=== PATIENT | female | born 1945 | race Caucasian/White ===

== ENCOUNTER 2017-05-11 07:49 | Emergency (ER) | payer MEDICARE, MEDICAID ==
[~2017-05-11] VITALS: Ht 152.4 cm; Wt 88.0 kg
[~2017-05-11 07:49] MED LIST: BACTRIM DS 8001 TA1 PO; BENADRYL 25MG C25 MG PO; BENADRYL ALLERG25 M3 PO; CIPRO 500MG TA500 MG PO; CLINDAMYCIN300 MG PO; DAILY MULTIPLE1 T11 PO; DEPAKOTE 500MG500 MG PO; GABAPENTIN 400400 M1 PO; HYDROXYZINE HCL25 M1 PO; IMODIUM 2MG. CAP2 MG PO; KEFLEX 500MG.500 MG PO; KEFLEX500 M1 PO; LASIX 20MG. TAB20 MG PO; LASIX20 MG PO; LIPITOR10 MG PO; LISINOPRIL 10MG10 MG PO; MAALOX ADVANCE355 ML PO; MAALOX MAXIMUM355 ML PO; MIRALAX17 GM/PACK PO; OMNICEF 300 MG300 MG PO; PEPTO-BISM262 MG/15 PO; PREDNISONE 20MG20 MG PO; TRICOR 145 MG145 MG NG; TYLENOL325 MG PO; VITAMIN D1000 IU PO; ZOFRAN4 MG PO; ZOLOFT 50MG TAB50 MG PO; ZOLOFT25 MG PO; ZYPREXA 5MG TAB5 MG PO
--- NOTE | 2017-05-11 09:08 | Emergency Room Report ---
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 N Clinical Suspician of Infection? N Mental Status: 1 - Regular (Normal Baseline) Sepsis Risk:Low Sepsis Risk Have you (or family members/close friends) recently traveled outside the [place]? N If Yes, where/when: Have you had exposure to infectious disease within the past month? N TB? Other? Specify: Source patient, RN notes reviewed, EMS, snf records, old records Exam Limitations no limitations Comment pt with chronic edema in lower ext and sent for eval Cardiac Chest Pain Chest pain indicative of cardiac No Timing/Duration this evening Severity moderate ALLERGIES Coded Allergies: buspirone (05/17/16) esomeprazole (From NEXIUM) (05/17/16) latex (05/17/16) morphine (05/17/16) pneumococcal vaccine (05/17/16) Home Medications Active Scripts HYDROXYZINE HCL (Hydroxyzine HCl) 25 MG PO TID #60 CAP Prov: 02/15/16 CEPHALEXIN (Keflex 500MG Capsule) 500 MG PO Q8H #30 CAP Prov: 02/08/17 Cephalexin (Keflex 500MG) 500 MG PO QID #40 CAP Prov: 05/05/17 Ciprofloxacin HCl (Cipro 500MG TAB) 500 MG PO BID #20 TAB Prov: 05/05/17 Furosemide (Lasix) 20 MG PO DAILY #5 TAB Prov: 09/30/16 Reported Medications Acetaminophen (Tylenol) 650 MG PO Q6HP PRN PAIN Loperamide Hcl (Loperamide) 2 MG PO TID PRN DIARRHEA Olanzapine (Zyprexa 5MG) 5 MG PO Q6HP PRN AGITATION ONDANSETRON HCL (Zofran 4MG Tab) 4 MG PO DAILYP PRN NAUSEA Atorvastatin Calcium (Lipitor 10MG) 40 MG PO QHS Divalproex Sodium (Depakote) 500 MG PO BID Gabapentin (Gabapentin 400MG Capsule) 400 MG PO QID LISINOPRIL (Lisinopril) 10 MG PO DAILY MULTIVITAMIN (Daily Multiple Vitamin) 1 TAB PO DAILY Olanzapine (Zyprexa 5MG) 10 MG PO QHS CHOLECALCIFEROL (VITAMIN D3) (Vitamin D3) 2,000 IUNITS PO DAILY Bismuth Subsalicylate (Pepto-Bismol) 10 ML PO Q4HP PRN STOMACH Mag Hydrox/Al Hydrox/Simeth (Maalox Maximum Strength Susp) 10 ML PO Q6H DIPHENHYDRAMINE HCL (Benadryl) 25 MG PO Q6HP PRN ITCHING Polyethylene Glycol 3350 (Miralax) 17 GM PO DAILY Fenofibrate 145 MG NG QHS Sertraline Hcl (Zoloft 50MG) 50 MG PO DAILY Furosemide (Lasix 20MG) 20 MG PO DAILY History Medical History General CAD? No Angina: No [place]: Yes Hypertension? No Hyperlipidemia? Yes CHF? Yes DVT? No PE? No COPD? No Asthma? No Anemia? No GERD? Yes Gastric ulcers? No GI Bleed? No Hernia? No Thyroid Problems? No Hypothyroidism? No CVA? No Seizures? No Diabetes? No Renal Insuffiency? Yes End Stage Renal Disease? No UTI? No Stones? No BPH? No GB Disease: Yes Nephritic Syndrome? No Asplenia? No Hepatitis? No Sickle Cell Disease? No Arthritis? No Migraines? No Cataracts? No Glaucoma? No MRSA? No HIV? No TB? No Anxiety? Yes Depression? Yes Cancer? No More? No Immunization Hx DT/Tetanus 1-4 Years Ago Pneumonia Refuses Surgical Hx Previous Surgery?Y KIDNEY SURGERY GALLBLADDER Tubal Ligation LEFT NEPHRECTOMY Family History Family Hx Diabetes No CAD Yes Hypertension Yes Hyperlipidemia Yes Cancer No TB No Social History Smoking Hx Smoker: Never Smoker Tobacco: No Alcohol Alcohol: No Drugs none Review of Systems All Other Systems Reviewed and Negative Constitutional denies fever Eyes denies drainage ENT denies: ear pain, epistaxis, throat pain. Respiratory denies cough, denies shortness of breath Cardiovascular denies chest pain, denies syncope Gastrointestinal denies abdominal pain, denies diarrhea, denies vomiting Genitourinary denies: dysuria, frequency, hesitancy, hematuria. Musculoskeletal denies back pain, denies joint pain, denies neck pain Skin see HPI, denies rash, other Psychiatric/Neurological denies headache, denies seizure Physical Exam Vital Signs Vital Signs Date Time Temp Pulse Resp B/P Pulse O2 O2 Flow FiO2 Ox Delivery Rate 05/11 0842 97.8 70 18 152/90 99 05/11 0753 97.8 70 18 152/90 99 - WBC >12,000 or <4,000 or 10% bands? 2 or more SIRS Criteria Met? B/P:152/90 MAP:110 Creatinine >2.0? UA output<0.5ml/kg/hr for 2 hrs? Platelet count >100,000? Lactate >2.0mmol/1? INR >1.2 or PTT > than 60 sec? Evidence of Organ Dysfunction? Provider documented clinical suspician of infection? N Sepsis Criteria Count: 0 Sepsis Risk: Low Sepsis Risk General Appearance no apparent distress Eye Exam - bilateral eye PERRL, bilateral eye EOMI Ear, Nose, Throat normal ENT inspection Neck supple Respiratory Status No: respiratory distress. Lung Sounds bilateral: lungs clear. 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 No Results/Orders Orders Procedure Date/time Status OP COURTSEY MEAL 05/11 075 Active Departure Departure Time of Disposition 912 Disposition DC Home or Self Care(routine) Clinical Impression Primary Impression: Lymphedema of both lower extremities Condition STABLE Referrals Rory Mcgowan MD (Family) Patient Instructions DI for Peripheral Edema -- Bilateral Additional Instructions will need therapy for wraps Discharge Counseling Counseled pt/family regarding diagnosis, follow up needs ED Critical Care Critical Care No at [id number]
[2017-05-11 09:30] VITALS: BP 127/85
== END 2017-05-11 09:31 | disposition home or self-care (01) ==
LOC: ER 07:49
DX: I89.0 Lymphedema, not elsewhere classified (principal); I50.9 Heart failure, unspecified

== ENCOUNTER 2017-07-02 20:14 | Emergency (ER) | payer MEDICARE, MEDICAID ==
[~2017-07-02] VITALS: Ht 152.4 cm; Wt 86.2 kg
--- NOTE | 2017-07-02 21:14 | Emergency Room Report ---
History of Present Illness Time Seen by [id number] Comment The patient is brought in by ambulance from [facility] for a fall. She says that she is wheelchair-bound. She needs assist in the shower. She says that somebody LEFT talcum powder on the floor of the shower causing her to slip and fall. She says that she hurts in her RIGHT ankle and knee, predominantly the knee. She has chronic knee pain for which she takes gabapentin. She has osteoarthritis of that joint. She also has some soreness in her hips. No injury to head, neck, or back. ALLERGIES Coded Allergies: buspirone (05/17/16) esomeprazole (From NEXIUM) (05/17/16) latex (05/17/16) morphine (05/17/16) pneumococcal vaccine (05/17/16) Home Medications Active Scripts HYDROXYZINE HCL (Hydroxyzine HCl) 25 MG PO TID #60 CAP Prov: 02/15/16 Furosemide (Lasix) 20 MG PO DAILY #5 TAB Prov: 09/30/16 Reported Medications Acetaminophen (Tylenol) 650 MG PO Q6HP PRN PAIN Loperamide Hcl (Loperamide) 2 MG PO TID PRN DIARRHEA Olanzapine (Zyprexa 5MG) 5 MG PO Q6HP PRN AGITATION ONDANSETRON HCL (Zofran 4MG Tab) 4 MG PO DAILYP PRN NAUSEA Atorvastatin Calcium (Lipitor 10MG) 40 MG PO QHS Divalproex Sodium (Depakote) 500 MG PO BID Gabapentin (Gabapentin 400MG Capsule) 400 MG PO QID LISINOPRIL (Lisinopril) 10 MG PO DAILY MULTIVITAMIN (Daily Multiple Vitamin) 1 TAB PO DAILY Olanzapine (Zyprexa 5MG) 10 MG PO QHS CHOLECALCIFEROL (VITAMIN D3) (Vitamin D3) 2,000 IUNITS PO DAILY Bismuth Subsalicylate (Pepto-Bismol) 10 ML PO Q4HP PRN STOMACH Mag Hydrox/Al Hydrox/Simeth (Maalox Maximum Strength Susp) 10 ML PO Q6H DIPHENHYDRAMINE HCL (Benadryl) 25 MG PO Q6HP PRN ITCHING Polyethylene Glycol 3350 (Miralax) 17 GM PO DAILY Fenofibrate 145 MG NG QHS Sertraline Hcl (Zoloft 50MG) 50 MG PO DAILY Furosemide (Lasix 20MG) 20 MG PO DAILY History Medical History General CAD? No Angina: No [place]: Yes Hypertension? No Hyperlipidemia? Yes CHF? Yes DVT? No PE? No COPD? No Asthma? No Anemia? No GERD? Yes Gastric ulcers? No GI Bleed? No Hernia? No Thyroid Problems? No Hypothyroidism? No CVA? No Seizures? No Diabetes? No Renal Insuffiency? Yes End Stage Renal Disease? No UTI? No Stones? No BPH? No GB Disease: Yes Nephritic Syndrome? No Asplenia? No Hepatitis? No Sickle Cell Disease? No Arthritis? No Migraines? No Cataracts? No Glaucoma? No MRSA? No HIV? No TB? No Anxiety? Yes Depression? Yes Cancer? No More? No Immunization Hx DT/Tetanus 1-4 Years Ago Pneumonia Refuses Surgical Hx Previous Surgery?Y KIDNEY SURGERY GALLBLADDER Tubal Ligation LEFT NEPHRECTOMY Family History Family Hx Diabetes No CAD Yes Hypertension Yes Hyperlipidemia Yes Cancer No TB No Social History Smoking Hx Smoker: Never Smoker Tobacco: No Alcohol Alcohol: No Review of Systems All Other Systems Reviewed and Negative Gastrointestinal denies vomiting Musculoskeletal denies back pain, joint pain, denies neck pain Psychiatric/Neurological denies headache Physical Exam Vital Signs Vital Signs Date Time Temp Pulse Resp B/P Pulse O2 O2 Flow FiO2 Ox Delivery Rate 07/02 2015 98.5 79 18 135/70 99 General Appearance normal appearance, WD/WN, no apparent distress Eye Exam - bilateral eye normal exam, bilateral eye PERRL, bilateral eye EOMI Ear, Nose, Throat hearing grossly normal, normal ENT inspection Neck normal inspection, non-tender, supple, full range of motion Respiratory Status Yes: trachea midline, chest symmetrical, non tender chest. No: respiratory distress. Lung Sounds bilateral: normal breath sounds, lungs clear. Cardiovascular normal exam, regular rate/rhythm, no peripheral edema, no gallop, no JVD, no murmur, no rub, normal peripheral pulses Peripheral Pulses Pulses normal Yes Gastrointestinal normal bowel sounds, normal exam, non tender, soft, no organomegaly Extremities apparent mild tenderness of RIGHT ankle and knee without edema, ecchymosis, effusion, or deformity. Good range of motion of all joints. Distal neurovascular status intact., no shortening or malrotation of the lower extremities. Good range of motion of hips. Neurologic alert, no motor/sensory deficits, oriented x 3 Mental status normal mood/affect Skin intact, normal color, warm/dry Medical Decision Making LABS/Meds/Orders Pt receiving controlled substance in ED? No Results/Orders Orders Procedure Date/time Status KNEE-3 VIEWS-RT 07/02 2023 Active HIP BILATERAL 2 VIEW MIN EACH 07/02 2023 Active ANKLE-RT-3 VIEWS 07/02 2023 Active Departure Departure Disposition DC Home or Self Care(routine) Clinical Impression Primary Impression: Right knee sprain Qualifiers: Encounter type: initial encounter Involved ligament of knee: unspecified ligament Qualified Code: S83.91XA - Sprain of unspecified site of right knee, initial encounter Secondary Impressions: Contusion, hip Qualifiers: Encounter type: initial encounter Laterality: right Qualified Code: S70.01XA - Contusion of right hip, initial encounter Right ankle sprain Qualifiers: Encounter type: initial encounter Involved ligament of ankle: unspecified ligament Qualified Code: S93.401A - Sprain of unspecified ligament of right ankle, initial encounter Condition STABLE Referrals Juan M HANNA,Rory Robb (Family) Patient Instructions How to Prevent Falls Additional Instructions Contact primary care provider if severe pain or any other concerns. ED Critical Care Critical Care No
[2017-07-02 21:17] VITALS: BP 135/70
--- NOTE | 2017-07-03 10:46 | RADIOLOGY REPORT PS360 ---
HIP BILATERAL 2 VIEW MIN EACH HISTORY: FALL Bilateral hip pain. Patient Age: 71 years: Female Ordering Physician: Lyle Monae MD TECHNIQUE: AP frog-leg view right and left hip COMPARISON : December 2016 right hip FINDINGS Right hip: appears intact with no fracture evident. The hip joint space appears well maintained and similar to previous study.. Hypertrophic ridging and lipping at the superior right acetabulum evident than left hip Left hip. Femoral head and neck intact . Osseous pelvis intact. No fracture or significant findings. Superior and inferior ramus intact bilateral. Sacrum unremarkable. SI joints unremarkable. Numerous phleboliths at the pelvic basin bilaterally. IMPRESSION: Right and left hip intact with no fracture or acute findings. Osseous pelvis intact. Mild hypertrophic ridging more evident at superior rim of right acetabulum and left may reflect some early degenerative changes here. Stable since prior studies
--- NOTE | 2017-07-03 10:50 | RADIOLOGY REPORT PS360 ---
KNEE-3 VIEWS-RT HISTORY: FALL pain at right knee Patient Age: 71 years: Female Ordering Physician: Lyle Monae MD TECHNIQUE: 3 views right knee nonweightbearing COMPARISON :January 2017 FINDINGS Marked joint space narrowing at lateral compartment with hypertrophic lipping and marginal osteophytes along at lateral margin lateral tibial plateau most evident..-With this note resulting suggestion of mild genu valgum. . The medial compartment appears fairly well-maintained. Bones well mineralized. Mild hypertrophic changes about the margin of patella. Upper normal joint fluid no significant joint effusion. IMPRESSION: No fracture or dislocation. No significant acute findings Degenerative arthritic changes right knee which are most pronounced at the lateral compartment. These appear similar if not slightly progressive since January 2017.
--- NOTE | 2017-07-03 10:52 | RADIOLOGY REPORT PS360 ---
ANKLE-RT-3 VIEWS HISTORY: FALLfall with right ankle pain Patient Age: 71 years: Female Ordering Physician: Lyle Monae MD TECHNIQUE: 3 views right ankle COMPARISON :None available FINDINGS ] Ankle is intact with no fracture nor dislocation. There is generous soft tissue swelling about the ankle both medial and lateral. Ankle mortise appears intact.. Dome of talus appears intact. No osteochondral defects at the fairly well-maintained ankle joint. The medial and lateral malleolus and posterior malleolus intact. Mild diffuse mineralization. Mild hypertrophic changes at insertion of Achilles tendon as well as small plantar calcaneal spur noted. IMPRESSION: No fracture at right ankle. Generous diffuse soft tissue swelling about ankle evident
== END 2017-07-02 22:00 | disposition home or self-care (01) ==
LOC: ER 20:14
DX: S83.91XA Sprain of unspecified site of right knee, initial encounter (principal); S70.01XA Contusion of right hip, initial encounter; S93.401A Sprain of unspecified ligament of right ankle, initial encounter; Z88.6 Allergy status to analgesic agent; Z88.7 Allergy status to serum and vaccine; I10 Essential (primary) hypertension; E78.5 Hyperlipidemia, unspecified; K21.9 Gastro-esophageal reflux disease without esophagitis; F41.8 Other specified anxiety disorders; W01.0XXA Fall on same level from slipping, tripping and stumbling without subsequent striking against object, initial encounter; Y92.009 Unspecified place in unspecified non-institutional (private) residence as the place of occurrence of the external cause

== ENCOUNTER 2017-07-11 15:18 | Emergency (ER) | payer MEDICARE, MEDICAID ==
[~2017-07-11] VITALS: Ht 152.4 cm; Wt 86.2 kg
--- NOTE | 2017-07-11 15:32 | Emergency Room Report ---
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 PT FELL TODAY TRYING TO TRANSFER OUT OF BED. PT USES WHEELCHAIR FOR MOBILITY AT [facility]. PT C/O R HIP AND R SHOULDER PAIN R/T FALL TODAY. 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 N Clinical Suspician of Infection? N Mental Status: 1 - Regular (Normal Baseline) Sepsis Risk:Low Sepsis Risk Have you (or family members/close friends) recently traveled outside the [place]? N If Yes, where/when: Have you had exposure to infectious disease within the past month? N TB? Other? Specify: Patient chronically off balance. Chronically falls, but has fallen multiple times this week. She fell two days ago in the shower and fell today while transferring from bed to wheelchair. She lives in a personal senior care and is asking about possible NH placement. No chest pain. No SOB. No syncope. No palpitations. No new neurological sx. Today has right shoulder pain and right hip pain. EMS states she is no longer able to get out of bed w/o assistance. She has a wheelchair at the personal senior care. ALLERGIES Coded Allergies: buspirone (05/17/16) esomeprazole (From NEXIUM) (05/17/16) latex (05/17/16) morphine (05/17/16) pneumococcal vaccine (05/17/16) Home Medications Active Scripts HYDROXYZINE HCL (Hydroxyzine HCl) 25 MG PO TID #60 CAP Prov: 02/15/16 Furosemide (Lasix) 20 MG PO DAILY #5 TAB Prov: 09/30/16 Reported Medications Acetaminophen (Tylenol) 650 MG PO Q6HP PRN PAIN Loperamide Hcl (Loperamide) 2 MG PO TID PRN DIARRHEA Olanzapine (Zyprexa 5MG) 5 MG PO Q6HP PRN AGITATION ONDANSETRON HCL (Zofran 4MG Tab) 4 MG PO DAILYP PRN NAUSEA Atorvastatin Calcium (Lipitor 10MG) 40 MG PO QHS Divalproex Sodium (Depakote) 500 MG PO BID Gabapentin (Gabapentin 400MG Capsule) 400 MG PO QID LISINOPRIL (Lisinopril) 10 MG PO DAILY MULTIVITAMIN (Daily Multiple Vitamin) 1 TAB PO DAILY Olanzapine (Zyprexa 5MG) 10 MG PO QHS CHOLECALCIFEROL (VITAMIN D3) (Vitamin D3) 2,000 IUNITS PO DAILY Bismuth Subsalicylate (Pepto-Bismol) 10 ML PO Q4HP PRN STOMACH Mag Hydrox/Al Hydrox/Simeth (Maalox Maximum Strength Susp) 10 ML PO Q6H DIPHENHYDRAMINE HCL (Benadryl) 25 MG PO Q6HP PRN ITCHING Polyethylene Glycol 3350 (Miralax) 17 GM PO DAILY Fenofibrate 145 MG NG QHS Sertraline Hcl (Zoloft 50MG) 50 MG PO DAILY Furosemide (Lasix 20MG) 20 MG PO DAILY History Medical History General CAD? No Angina: No CT: Yes Hypertension? No Hyperlipidemia? Yes CHF? Yes DVT? No PE? No COPD? No Asthma? No Anemia? No GERD? Yes Gastric ulcers? No GI Bleed? No Hernia? No Thyroid Problems? No Hypothyroidism? No CVA? No Seizures? No Diabetes? No Renal Insuffiency? Yes End Stage Renal Disease? No UTI? No Stones? No BPH? No GB Disease: Yes Nephritic Syndrome? No Asplenia? No Hepatitis? No Sickle Cell Disease? No Arthritis? No Migraines? No Cataracts? No Glaucoma? No MRSA? No HIV? No TB? No Anxiety? Yes Depression? Yes Cancer? No More? No Immunization Hx DT/Tetanus 1-4 Years Ago Pneumonia Refuses Surgical Hx Previous Surgery?Y KIDNEY SURGERY GALLBLADDER Tubal Ligation LEFT NEPHRECTOMY Family History Family Hx Diabetes No CAD Yes Hypertension Yes Hyperlipidemia Yes Cancer No TB No Social History Smoking Hx Smoker: Never Smoker Tobacco: No Alcohol Alcohol: No Review of Systems All Other Systems Reviewed and Negative Musculoskeletal see HPI Physical Exam Vital Signs Vital Signs Date Time Temp Pulse Resp B/P Pulse O2 O2 Flow FiO2 Ox Delivery Rate 07/11 1519 97.8 77 18 146/94 97 General Appearance normal appearance, WD/WN, no apparent distress Eye Exam - bilateral eye normal exam, bilateral eye PERRL, bilateral eye EOMI Ear, Nose, Throat hearing grossly normal (atraumatic) Neck normal inspection, non-tender, supple, full range of motion Respiratory Status Yes: trachea midline, chest symmetrical, non tender chest. No: respiratory distress, tender on palpation, use of accessory muscles, pain on inspiration, pain on expiration, productive cough, non productive cough. Lung Sounds bilateral: normal breath sounds, lungs clear. Cardiovascular normal exam, regular rate/rhythm, no peripheral edema, no gallop, no JVD, no murmur, no rub, normal peripheral pulses Gastrointestinal normal bowel sounds, normal exam, non tender, soft, no organomegaly, no guarding, no rebound Back normal inspection, no vertebral tenderness, bowel/bladder continent, strt leg raising(L)-NML, strt leg raising(R)-NML Extremities normal range of motion, normal inspection, normal capillary refill, no calf tenderness, no pedal edema, pelvis stable, pain to right shoulder, diffusely, w/o crepitus/deformity/stepoff; pelvis stable but pain to right hip with palpation; no rotation or shortening noted. 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 No Results/Orders Orders Procedure Date/time Status DIET-NOTHING BY MOUTH 07/[address] HEAD REQ 07/[address] SCAN REQ 07/11 1527 Complete [id number] VIEW COMP.-RT 07/11 1527 Active XRAY/CT/US XRAY/CT/US XRAY shoulder XR interpretation by reviewed by me Xray Results no fracture seen (DJD good alignment) CT head, C-spine, pelvis CT interpretation by reviewed by me (reports reviewed x three) Time results known: 1625 CT Results normal/NAD, no fracture seen (neg acute; DJD spondylosis) Consult MD Physician Consult Time Called 1531 Reason Other (care management consulted ?NH) Departure Departure Time of Disposition 162 Disposition DC Home or Self Care(routine) Clinical Impression Primary Impression: Fall Qualifiers: Encounter type: initial encounter Qualified Code: W19.XXXA - Unspecified fall, initial encounter Secondary Impressions: Right hip pain Right shoulder pain Qualifiers: Chronicity: acute Qualified Code: M25.511 - Pain in right shoulder Condition STABLE Referrals Juan M HANNA,Rory Robb (Family) Patient Instructions How to Prevent Falls Additional Instructions Valerie from care management has spoken with Mi to set up home health. Continue all current medications; recommend assistance with transfer from bed to wheelchair and vice versa and assistance with bathing to help prevent falls. Discharge Counseling Counseled pt/family regarding diagnosis, test results, medications/RX, home care, follow up needs ED Critical Care Critical Care No at 1707
--- NOTE | 2017-07-11 15:32 | Emergency Room Report ---
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 PT FELL TODAY TRYING TO TRANSFER OUT OF BED. PT USES WHEELCHAIR FOR MOBILITY AT [facility]. PT C/O R HIP AND R SHOULDER PAIN R/T FALL TODAY. 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 N Clinical Suspician of Infection? N Mental Status: 1 - Regular (Normal Baseline) Sepsis Risk:Low Sepsis Risk Have you (or family members/close friends) recently traveled outside the [place]? N If Yes, where/when: Have you had exposure to infectious disease within the past month? N TB? Other? Specify: Patient chronically off balance. Chronically falls, but has fallen multiple times this week. She fell two days ago in the shower and fell today while transferring from bed to wheelchair. She lives in a personal group home and is asking about possible NH placement. No chest pain. No SOB. No syncope. No palpitations. No new neurological sx. Today has right shoulder pain and right hip pain. EMS states she is no longer able to get out of bed w/o assistance. She has a wheelchair at the personal group home. ALLERGIES Coded Allergies: buspirone (05/17/16) esomeprazole (From NEXIUM) (05/17/16) latex (05/17/16) morphine (05/17/16) pneumococcal vaccine (05/17/16) Home Medications Active Scripts HYDROXYZINE HCL (Hydroxyzine HCl) 25 MG PO TID #60 CAP Prov: 02/15/16 Furosemide (Lasix) 20 MG PO DAILY #5 TAB Prov: 09/30/16 Reported Medications Acetaminophen (Tylenol) 650 MG PO Q6HP PRN PAIN Loperamide Hcl (Loperamide) 2 MG PO TID PRN DIARRHEA Olanzapine (Zyprexa 5MG) 5 MG PO Q6HP PRN AGITATION ONDANSETRON HCL (Zofran 4MG Tab) 4 MG PO DAILYP PRN NAUSEA Atorvastatin Calcium (Lipitor 10MG) 40 MG PO QHS Divalproex Sodium (Depakote) 500 MG PO BID Gabapentin (Gabapentin 400MG Capsule) 400 MG PO QID LISINOPRIL (Lisinopril) 10 MG PO DAILY MULTIVITAMIN (Daily Multiple Vitamin) 1 TAB PO DAILY Olanzapine (Zyprexa 5MG) 10 MG PO QHS CHOLECALCIFEROL (VITAMIN D3) (Vitamin D3) 2,000 IUNITS PO DAILY Bismuth Subsalicylate (Pepto-Bismol) 10 ML PO Q4HP PRN STOMACH Mag Hydrox/Al Hydrox/Simeth (Maalox Maximum Strength Susp) 10 ML PO Q6H DIPHENHYDRAMINE HCL (Benadryl) 25 MG PO Q6HP PRN ITCHING Polyethylene Glycol 3350 (Miralax) 17 GM PO DAILY Fenofibrate 145 MG NG QHS Sertraline Hcl (Zoloft 50MG) 50 MG PO DAILY Furosemide (Lasix 20MG) 20 MG PO DAILY History Medical History General CAD? No Angina: No NM: Yes Hypertension? No Hyperlipidemia? Yes CHF? Yes DVT? No PE? No COPD? No Asthma? No Anemia? No GERD? Yes Gastric ulcers? No GI Bleed? No Hernia? No Thyroid Problems? No Hypothyroidism? No CVA? No Seizures? No Diabetes? No Renal Insuffiency? Yes End Stage Renal Disease? No UTI? No Stones? No BPH? No GB Disease: Yes Nephritic Syndrome? No Asplenia? No Hepatitis? No Sickle Cell Disease? No Arthritis? No Migraines? No Cataracts? No Glaucoma? No MRSA? No HIV? No TB? No Anxiety? Yes Depression? Yes Cancer? No More? No Immunization Hx DT/Tetanus 1-4 Years Ago Pneumonia Refuses Surgical Hx Previous Surgery?Y KIDNEY SURGERY GALLBLADDER Tubal Ligation LEFT NEPHRECTOMY Family History Family Hx Diabetes No CAD Yes Hypertension Yes Hyperlipidemia Yes Cancer No TB No Social History Smoking Hx Smoker: Never Smoker Tobacco: No Alcohol Alcohol: No Review of Systems All Other Systems Reviewed and Negative Musculoskeletal see HPI Physical Exam Vital Signs Vital Signs Date Time Temp Pulse Resp B/P Pulse O2 O2 Flow FiO2 Ox Delivery Rate 07/11 1519 97.8 77 18 146/94 97 General Appearance normal appearance, WD/WN, no apparent distress Eye Exam - bilateral eye normal exam, bilateral eye PERRL, bilateral eye EOMI Ear, Nose, Throat hearing grossly normal (atraumatic) Neck normal inspection, non-tender, supple, full range of motion Respiratory Status Yes: trachea midline, chest symmetrical, non tender chest. No: respiratory distress, tender on palpation, use of accessory muscles, pain on inspiration, pain on expiration, productive cough, non productive cough. Lung Sounds bilateral: normal breath sounds, lungs clear. Cardiovascular normal exam, regular rate/rhythm, no peripheral edema, no gallop, no JVD, no murmur, no rub, normal peripheral pulses Gastrointestinal normal bowel sounds, normal exam, non tender, soft, no organomegaly, no guarding, no rebound Back normal inspection, no vertebral tenderness, bowel/bladder continent, strt leg raising(L)-NML, strt leg raising(R)-NML Extremities normal range of motion, normal inspection, normal capillary refill, no calf tenderness, no pedal edema, pelvis stable, pain to right shoulder, diffusely, w/o crepitus/deformity/stepoff; pelvis stable but pain to right hip with palpation; no rotation or shortening noted. 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 No Results/Orders Orders Procedure Date/time Status DIET-NOTHING BY MOUTH 07/[address] HEAD REQ 07/[address] SCAN REQ 07/11 1527 Complete [id number] VIEW COMP.-RT 07/11 1527 Active XRAY/CT/US XRAY/CT/US XRAY shoulder XR interpretation by reviewed by me Xray Results no fracture seen (DJD good alignment) CT head, C-spine, pelvis CT interpretation by reviewed by me (reports reviewed x three) Time results known: 1625 CT Results normal/NAD, no fracture seen (neg acute; DJD spondylosis) Consult MD Physician Consult Time Called 1531 Reason Other (care management consulted ?NH) Departure Departure Time of Disposition 162 Disposition DC Home or Self Care(routine) Clinical Impression Primary Impression: Fall Qualifiers: Encounter type: initial encounter Qualified Code: W19.XXXA - Unspecified fall, initial encounter Secondary Impressions: Right hip pain Right shoulder pain Qualifiers: Chronicity: acute Qualified Code: M25.511 - Pain in right shoulder Condition STABLE Referrals Juan M HANNA,Rory Robb (Family) Patient Instructions How to Prevent Falls Additional Instructions Valerie from care management has spoken with Mi to set up home health. Continue all current medications; recommend assistance with transfer from bed to wheelchair and vice versa and assistance with bathing to help prevent falls. Discharge Counseling Counseled pt/family regarding diagnosis, test results, medications/RX, home care, follow up needs ED Critical Care Critical Care No at [id number]
--- NOTE | 2017-07-11 16:07 | RADIOLOGY REPORT PS360 ---
CT HEAD W/O CONTRAST HISTORY: Headache/head pain following injury, multiple falls PT FELL FIVE TIMES AT PERSONAL SHELTER THIS WEEK ORDERING PHYSICIAN: Rosa Davis MD PATIENT AGE: 71 years COMPARISON: 12/06/2016 TECHNIQUE: Axial images obtained without contrast. Brain and bone windows reviewed. FINDINGS: No midline shift, mass effect, intracranial hemorrhage, hydrocephalus, or extra-axial fluid collection is evident. There is generalized atrophy The calvarium has an unremarkable appearance. No mastoid effusion. The visualized paranasal sinuses are unremarkable. IMPRESSION: No acute intracranial findings.
--- NOTE | 2017-07-11 16:07 | RADIOLOGY REPORT PS360 ---
CT HEAD W/O CONTRAST HISTORY: Headache/head pain following injury, multiple falls PT FELL FIVE TIMES AT PERSONAL JAIL THIS WEEK ORDERING PHYSICIAN: Rosa Davis MD PATIENT AGE: 71 years COMPARISON: 12/06/2016 TECHNIQUE: Axial images obtained without contrast. Brain and bone windows reviewed. FINDINGS: No midline shift, mass effect, intracranial hemorrhage, hydrocephalus, or extra-axial fluid collection is evident. There is generalized atrophy The calvarium has an unremarkable appearance. No mastoid effusion. The visualized paranasal sinuses are unremarkable. IMPRESSION: No acute intracranial findings.
--- NOTE | 2017-07-11 16:12 | RADIOLOGY REPORT PS360 ---
CT CERVICAL SPINE W/O CONT INDICATION: Neck pain following injury, multiple falls PT FELL FIVE TIMES AT PERSONAL LONG TERM THIS WEEK ORDERING PHYSICIAN: Rosa Davis MD PATIENT AGE: 71 years COMPARISON: 12/06/2016 TECHNIQUE: Axial images are obtained without contrast. Sagittal and coronal reformatted images are reviewed as well. FINDINGS: No acute fracture or dislocation is evident. There is slight reversal of the cervical lordosis with mild anterolisthesis of C4 on C5 of 4 mm not significantly changed. There is multilevel degenerative disc disease and facet arthritic change C2-C7. Small bony spur is present along the anterior arch of C1 on the left projected between the dens and the arch is unchanged. C2-C3: Degenerative disc disease. See 3 C4: Degenerative disc disease with facet and uncovertebral hypertrophy with bilateral foraminal narrowing. C4-C5: Severe degenerative disc disease with severe right-sided foraminal narrowing and moderate to severe left-sided foraminal narrowing. C5-C6: Degenerative disc disease with bilateral foraminal narrowing. There are prominent anterior osteophytes along the lower cervical spine. Lung apices are clear. IMPRESSION: 1. No acute fracture. 2. Moderate to severe cervical spondylosis as detailed above
--- NOTE | 2017-07-11 16:17 | RADIOLOGY REPORT PS360 ---
CT PELVIS W/O CONTRAST INDICATION: Pelvic pain following injury, multiple falls PT FELL FIVE TIMES AT PERSONAL RETIREMENT THIS WEEK ORDERING PHYSICIAN: Rosa Davis MD PATIENT AGE: 71 years COMPARISON: None TECHNIQUE: Axial images are obtained without contrast. Sagittal and coronal reformatted images are reviewed as well. FINDINGS: No acute fracture or dislocation. There is fusion of the right SI joint. Lumbar spondylosis noted. There is a ventral abdominal wall hernia containing a loop of transverse colon. No obvious obstruction. IMPRESSION: 1. No acute fracture. 2. Abdominal wall hernia containing a loop of large bowel
--- NOTE | 2017-07-11 16:17 | RADIOLOGY REPORT PS360 ---
CT PELVIS W/O CONTRAST INDICATION: Pelvic pain following injury, multiple falls PT FELL FIVE TIMES AT PERSONAL ALF THIS WEEK ORDERING PHYSICIAN: Rosa Davis MD PATIENT AGE: 71 years COMPARISON: None TECHNIQUE: Axial images are obtained without contrast. Sagittal and coronal reformatted images are reviewed as well. FINDINGS: No acute fracture or dislocation. There is fusion of the right SI joint. Lumbar spondylosis noted. There is a ventral abdominal wall hernia containing a loop of transverse colon. No obvious obstruction. IMPRESSION: 1. No acute fracture. 2. Abdominal wall hernia containing a loop of large bowel
--- NOTE | 2017-07-11 16:43 | RADIOLOGY REPORT PS360 ---
[id number] VIEW COMP.-RT HISTORY: Pain following injury frequent falls x five this week c/o R shoulder pain ORDERING PHYSICIAN: Rosa Davis MD PATIENT AGE: 71 years COMPARISON: None FINDINGS: No acute fracture or dislocation evident. There are mild osteoarthritic changes of the acromioclavicular joint and glenohumeral joint. Multiple soft tissue calcifications are present along the right deltoid area. IMPRESSION: Osteoarthritis, no acute finding
--- NOTE | 2017-07-11 16:43 | RADIOLOGY REPORT PS360 ---
[id number] VIEW COMP.-RT HISTORY: Pain following injury frequent falls x five this week c/o R shoulder pain ORDERING PHYSICIAN: Rosa aDvis MD PATIENT AGE: 71 years COMPARISON: None FINDINGS: No acute fracture or dislocation evident. There are mild osteoarthritic changes of the acromioclavicular joint and glenohumeral joint. Multiple soft tissue calcifications are present along the right deltoid area. IMPRESSION: Osteoarthritis, no acute finding
[2017-07-11 16:45] VITALS: BP 127/70
--- OUTSIDE RECORDS SUMMARY | 2017-07-16 02:45 | External Medical Summary Rpt | CCD ---
Demographics Preferred Language Kiswahili Marital Status Unknown Yazidi Affiliation Unknown Race Unknown Ethnic Group Unknown Author Author , BASSEM CRAWFORDCY Address Unknown Phone [email or web address] Care Team Providers Care Well Testing Operator Name Role Phone [facility]LY [facility] # Unavailable Unavailable 56, [employer] [facility] # 56 Purpose Continuity of Care Document - 12-25-2009 through 2016 Medications Na ND Rx Da Fi Fi Am Da Di Ph RX Ph St me C No te ll ll ou ys ag ar # ys at rm s nt no ma ic us Or Da si cy ia de te s n re d DO 00 06 12 4 60 30 GE 53 LAKE Ac CU 53 -0 -2 .0 NO 43 YS ti SA 63 9- 2- 00 A 0 LI ve TE 75 20 20 HE P 70 11 11 AL DI SO 1 TH AN DI CA A UM RE C # 25 0 56 MG CA PS UL E DO 00 06 10 4 60 30 GE 53 LAKE Ac CU 53 -0 -1 .0 NO 43 YS ti SA 63 9- 1- 00 A 0 LI ve TE 75 20 20 HE P 70 11 11 AL DI SO 1 TH AN DI CA A UM RE C # 25 0 56 MG CA PS UL E DO 00 06 09 4 60 30 GE 53 LAKE Ac CU 53 -0 -0 .0 NO 43 YS ti SA 63 9- 6- 00 A 0 LI ve TE 75 20 20 HE P 70 11 11 AL DI SO 1 TH AN DI CA A UM RE C # 25 0 56 MG CA PS UL E DO 00 06 07 4 60 30 GE 53 LAKE Ac CU 53 -0 -1 .0 NO 43 YS ti SA 63 9- 9- 00 A 0 LI ve TE 75 20 20 HE P 70 11 11 AL DI SO 1 TH AN DI CA A UM RE C # 25 0 56 MG CA PS UL E DO 00 06 06 4 60 30 GE 53 LAKE Ac CU 53 -0 -2 .0 NO 43 YS ti SA 63 9- 2- 00 A 0 LI ve TE 75 20 20 HE P 70 11 11 AL DI SO 1 TH AN DI CA A UM RE C # 25 0 56 MG CA PS UL E DO 00 03 04 5 60 30 GE 49 LAKE Ac CU 53 -1 -1 .0 NO 76 YS ti SA 63 8- 4- 00 A 7 LI ve TE 75 20 20 HE P 70 11 11 AL DI SO 1 TH AN DI CA A UM RE C # 25 0 56 MG CA PS UL E DO 00 03 03 5 60 30 GE 49 LAKE Ac CU 53 -1 -1 .0 NO 76 YS ti SA 63 8 8- 00 A 7 LI ve TE 75 20 20 HE P 70 11 11 AL DI SO 1 TH AN DI CA A UM RE C # 25 0 56 MG CA PS UL E DO 00 08 02 4 60 30 GE 41 LAKE Ac CU 53 -1 -0 .0 NO 03 YS ti SA 63 00 A 0 LI ve TE 75 20 20 HE P 70 10 11 AL DI SO 1 TH AN DI CA A UM RE C # 25 0 56 MG CA PS UL E DO 00 08 01 4 60 30 GE 41 LAKE Ac CU 53 -1 -1 .0 NO 03 YS ti SA 63 A 0 LI ve TE 75 20 20 HE P 70 10 11 AL DI SO 1 TH AN DI CA A UM RE C # 25 0 56 MG CA PS UL E DO 00 08 11 4 60 30 GE 41 LAKE Ac CU 53 -1 -0 .0 NO 03 YS ti SA 63 A 0 LI ve TE 75 20 20 HE P 70 10 10 AL DI SO 1 TH AN DI CA A UM RE C # 25 0 56 MG CA PS UL E DO 00 08 10 4 60 30 GE 41 LAKE Ac CU 53 -1 -1 .0 NO 03 YS ti SA 63 A 0 LI ve TE 75 20 20 HE P 70 10 10 AL DI SO 1 TH AN DI CA A UM RE C # 25 0 56 MG CA PS UL E DO 00 08 09 4 60 30 GE 41 LAKE Ac CU 53 -1 -0 .0 NO 03 YS ti SA 63 A 0 LI ve TE 75 20 20 HE P 70 10 10 AL DI SO 1 TH AN DI CA A UM RE C # 25 0 56 MG CA PS UL E DO 00 07 08 3 60 30 GE 40 RE Ac CU 53 -1 -1 .0 NO 25 ES ti SA 63 9 2- 00 A 2 OR ve TE 75 20 20 HE 70 10 10 AL RUBÉN SO 1 TH HN DI CA E UM RE # 25 0 56 MG CA PS UL E DO 00 04 07 3 60 30 GE 36 LAKE Ac CU 53 -2 -1 .0 NO 69 YS ti SA 63 1- 9- 00 A 9 LI ve TE 75 20 20 HE P 70 10 10 AL DI SO 1 TH AN DI CA A UM RE C # 25 0 56 MG CA PS UL E DO 00 04 06 3 60 30 GE 36 LAKE Ac CU 53 -2 -1 .0 NO 69 YS ti SA 63 1- 4- 00 A 9 LI ve TE 75 20 20 HE P 70 10 10 AL DI SO 1 TH AN DI CA A UM RE C # 25 0 56 MG CA PS UL E DO 00 04 05 3 60 30 GE 36 LAKE Ac CU 53 -2 -1 .0 NO 69 YS ti SA 63 1 7- 00 A 9 LI ve TE 75 20 20 HE P 70 10 10 AL DI SO 1 TH AN DI CA A UM RE C # 25 0 56 MG CA PS UL E DO 00 04 04 3 60 30 GE 36 LAKE Ac CU 53 -2 -2 .0 NO 69 YS ti SA 63 1- - 00 A 9 LI ve TE 75 20 20 HE P 70 10 10 AL DI SO 1 TH AN DI CA A UM RE C # 25 0 56 MG CA PS UL E DO 00 11 03 3 60 30 GE 30 LAKE Ac CU 53 -1 -2 .0 NO 50 YS ti SA 63 8- 5- 00 A 6 LI ve TE 75 20 20 HE P 70 09 10 AL DI SO 1 TH AN DI CA A UM RE C # 25 0 56 MG CA PS UL E
--- OUTSIDE RECORDS SUMMARY | 2017-07-16 02:45 | External Medical Summary Rpt | CCD ---
Author Author , BASSEM LUEVANO Address Unknown Phone [email or web address] Team Providers Care Professor Of Communication Arts Name Role Phone [facility] # Unavailable Unavailable 56, [facility] Purpose Continuity of Care Document [...] NO 76 YS ti SA 63 8- 8- 00 A 7 LI ve TE 75 20 20 HE P 70 11 11 AL DI SO 1 TH AN DI CA A UM RE C # 25 0 56 MG CA PS UL E DO 00 08 02 4 60 30 GE 41 LAKE Ac CU 53 -1 -0 .0 NO 03 YS ti SA 63 1- 7- 00 A 0 LI ve TE 75 20 20 HE P 70 10 11 AL DI SO 1 TH AN DI CA A UM RE C # 25 0 56 MG CA PS UL E DO 00 08 01 4 60 30 GE 41 LAKE Ac CU 53 -1 -1 .0 NO 03 YS ti SA 63 1- 1- 00 A 0 LI ve TE 75 20 20 HE P 70 10 11 AL DI SO 1 TH AN DI CA A UM RE C # 25 0 56 MG CA PS UL E DO 00 08 11 4 60 30 GE 41 LAKE Ac CU 53 -1 -0 .0 NO 03 YS ti SA 63 1- 9- 00 A 0 LI ve TE 75 20 20 HE P 70 10 10 AL DI SO 1 TH AN DI CA A UM RE C # 25 0 56 MG CA PS UL E DO 00 08 10 4 60 30 GE 41 LAKE Ac CU 53 -1 -1 .0 NO 03 YS ti SA 63 1- 1- 00 A 0 LI ve TE 75 20 20 HE P 70 10 10 AL DI SO 1 TH AN DI CA A UM RE C # 25 0 56 MG CA PS UL E DO 00 08 09 4 60 30 GE 41 LAKE Ac CU 53 -1 -0 .0 NO 03 YS ti SA 63 1- 9- 00 A 0 LI ve TE 75 20 20 HE P 70 10 10 AL DI SO 1 TH AN DI CA A UM RE C # 25 0 56 MG CA PS UL E DO 00 07 08 3 60 30 GE 40 RE Ac CU 53 -1 -1 .0 NO 25 ES ti SA 63 9- 2- 00 A 2 OR ve TE 75 20 20 HE 70 10 10 AL RUBÉN SO 1 HN DI CA E UM RE # [...] NO 69 YS ti SA 63 1- 7- 00 A 9 LI ve TE 75 20 20 HE P 70 10 10 AL DI SO 1 TH AN DI CA A UM RE C # 25 0 56 MG CA PS UL E DO 00 04 04 3 60 30 GE 36 LAKE Ac CU 53 -2 -2 .0 NO 69 YS ti SA 63 1- 1- 00 A 9 LI ve TE 75 [...]
--- OUTSIDE RECORDS SUMMARY | 2017-07-16 02:45 | External Medical Summary Rpt | CCD ---
Demographics Preferred Language Lao Marital Status Unknown Islam Affiliation Unknown Race Unknown Ethnic Group Unknown Author Author , BASSEM CRAWFORDCY Address Unknown Phone [email or web address] Care Team Providers Care Area Field Person Name Role Phone [facility]avonneFORMERLY [facility] # Unavailable Unavailable 56, [employer] [facility] # 56 Purpose Continuity of Care Document [...]
--- OUTSIDE RECORDS SUMMARY | 2017-07-16 02:45 | External Medical Summary Rpt | CCD ---
Author Author , BASSEM LUEVANO Address Unknown Phone [email or web address] Care Team Providers Care Machining And Assembly Supervisor Name Role Phone [facility] # Unavailable Unavailable 56, [employer] MediaFORMERLY [facility] # 56 Purpose Continuity of Care [...]
--- OUTSIDE RECORDS SUMMARY | 2017-07-16 02:46 | External Medical Summary Rpt | CCD ---
Author Author , BASSEM LUEVANO Address Unknown Phone [email or web address] Immunization Name Date Rout CVX Reac Dose Comm Prov Is Faci e tion ent ider Refu lity Give sed n PCV1 06-0 133 999 Hist 1005 No 1005 3 3-20 oric 00 00 16 al Info rmat ion - Sour ce Unsp ecif ied Td 03-0 Intr 9 999 Hist H134 No H134 (shi 1-20 amus oric lt), 04 cula al r Info adso rmat rbed ion - Sour ce Unsp ecif ied
--- OUTSIDE RECORDS SUMMARY | 2017-07-16 02:46 | External Medical Summary Rpt | CCD ---
Author Author , BASSEM LUEVANO Address Unknown Phone [email or web address] Immunization Name Date Rout CVX Reac Dose [...]
--- OUTSIDE RECORDS SUMMARY | 2017-07-16 02:47 | External Medical Summary Rpt ---
Author Author [employer], [employer] Organization [employer] Address Unknown Phone Unavailable Results Comprehensive metabolic 2000 panel in Serum or Plasma Observa Value Referen Units Interpr Notes Date tion ce etation Range Albumin/G 1.1 - 1.8 No Low No May 05 lobulin informati informati 2017 4:15 [Mass on in on in PM ratio] in source source Serum or data data Plasma Albumin 3.4 - 5.0 gm/dL Low No May 05 [Mass/vol informati 2017 4:15 ume] in on in PM Serum or source Plasma data Alkaline 46 - 116 U/L Normal No May 05 phosphata informati 2016 4:15 se on in PM [Enzymati source c data activity/ volume] in Serum or Plasma Bilirubin 0.2 - 1.0 mg/dL Normal No May 05 .total informati 2016 4:15 [Mass/vol on in PM ume] in source Serum or data Plasma Urea 7 - 18 mg/dL High No May 05 nitrogen informati 2017 4:15 [Mass/vol on in PM ume] in source Serum or data Plasma Calcium 8.5 - mg/dL Normal No May 05 [Mass/vol 10.1 informati 2017 4:15 ume] in on in PM Serum or source Plasma data Chloride 98 - 107 mmoL/L Normal No May 05 [Moles/vo informati 2017 4:15 lume] in on in PM Serum or source Plasma data Carbon 21.0 - mmoL/L Normal No May 05 dioxide, 32.0 informati 2017 4:15 total on in PM [Moles/vo source lume] in data Serum or Plasma Creatinin 0.55 - mg/dL High No May 05 e 1.02 informati 2017 4:15 [Mass/vol on in PM ume] in source Serum or data Plasma Creatinin 50 - 200 ML/MIN Normal No May 05 e renal informati 2017 4:15 clearance on in PM source predicted data by Cockcroft -Gault formula Estimated 59- ML/MIN Low REFERENCE Aug 3 RANGE: 2016 4:15 glomerula >60 PM r ML/MIN/1. filtratio 73 SQUARE n rate METERSIf (GF this patient is -A merican, then multiply theresult by 1.210. Globulin 1.3 - 3.2 gm/dL High No May 05 [Mass/vol informati 2016 4:15 ume] in on in PM Serum source data Glucose 74 - 106 mg/dL High No May 05 [Mass/vol informati 2016 4:15 ume] in on in PM Serum or source Plasma data Potassium 3.5 - 5.1 mmoL/L Normal No May 052016 4:15 [Moles/vo on in PM lume] in source Serum or data Plasma Sodium 136 - 145 mmoL/L Normal No May 05 [Moles/vo informati 2016 4:15 lume] in on in PM Serum or source Plasma data Aspartate 15 - 37 U/L Normal No May 052016 4:15 aminotran on in PM sferase source [Enzymati data c activity/ volume] in Serum or Plasma Alanine 12 - 78 U/L Normal May 05 aminotran 2016 4:15 sferase on in PM [Enzymati source c data activity/ volume] in Serum or Plasma Protein 6.4 - 8.2 gm/dL Normal May 05 [Mass/vol informati 2016 4:15 ume] in on in PM Serum or source Plasma data CRP Observa Value Referen Units Interpr Notes Date tion ce etation Range CRP 0.0 - 0.9 MG/DL Normal No May 052016 4:15 on in PM source data Lactate [Moles/volume] in Blood Observa Value Referen Units Interpr Notes Date tion ce etation Range Lactate 0.4 - 2.0 mmol/L Normal No May 05 [Moles/vo informati 2016 4:15 lume] in on in PM Blood source data CBC W Auto Differential panel in Blood Observa Value Referen Units Interpr Notes Date tion ce etation Range Basophils 0 - 0.2 K/MM3 Normal No May 052016 4:15 [#/volume on in PM ] in source Blood by data Automated count Basophils 0.1 - 2.0 % Normal No May 052016 4:15 leukocyte on in PM s in source Blood by data Automated count Eosinophi 0.0 - 0.4 K/mm3 Normal No May 05 ls informati 2016 4:15 [#/volume on in PM ] in source Blood by data Automated count Eosinophi 0.1 - % Normal No May 05 ls/100 12.0 informati 2016 4:15 leukocyte on in PM s in source Blood by data Automated count Granulocy 1.8 - 7.8 K/mm3 Normal No May 05 mikael informati 2016 4:15 [#/volume on in PM ] in source Blood by data Automated count Granulocy 37.0 - % Normal No May 05 mikael/100 80.0 informati 2016 4:15 leukocyte on in PM s in source Blood by data Automated count Hematocri 37.0 - % Low No May 05 t [Volume 47.0 informati 2016 4:15 on in PM Fraction] source of Blood data Hemoglobi 12.2 - g/dL Low No May 05 n 16.2 informati 2016 4:15 [Mass/vol on in PM ume] in source Blood data Lymphocyt 0.7 - 4.5 K/mm3 Normal No May 05 es inform2016 4:15 [#/volume on in PM ] in source Unspecifi data ed specimen by Automated count Lymphocyt 10 - 50.0 % Normal No May 05 es inform2016 4:15 [#/volume on in PM ] in source Unspecifi data ed specimen by Automated count Erythrocy 27 - 31.2 pg Normal No May 05 te mean 2016 4:15 corpuscul on in PM ar source hemoglobi data n [Entitic mass] Erythrocy 31.8 - g/dl Low No May 05 te mean 35.4 informati 2016 4:15 corpuscul on in PM ar source hemoglobi data n concentra tion [Mass/vol ume] by Automated count Erythrocy 82.2 - fl Normal No May 05 te mean 97.8 informati 2016 4:15 corpuscul on in PM ar volume source [Entitic data volume] by Automated count Monocytes 0.1 - 1.0 K/mm3 Normal No May 05 informati 2016 4:15 [#/volume on in PM ] in source Blood by data Automated count Monocytes 1.7 - 9.3 % Normal No May 05 /100 informati 2016 4:15 leukocyte on in PM s in source Blood by data Automated count Platelet 7.4 - fl Normal No May 05 mean 10.4 informati 2016 4:15 volume on in PM [Entitic source volume] data in Blood by Automated count Platelets 142 - 424 K/mm3 Normal No May 05 informati 2016 4:15 [#/volume on in PM ] in source Blood data Erythrocy 4.2 - 5.4 M/mm3 Low No May 05 mikael ati 2016 4:15 [#/volume on in PM ] in source Amniotic data fluid Erythrocy 11.5 - % Normal No May 05 te 17.5 informati 2016 4:15 distribut on in PM ion width source [Entitic data volume] by Automated count Leukocyte 4.8 - K/MM3 Low No May 05 s 10.8 informati 2016 4:15 [#/volume on in PM ] in source Blood data BMP Observa Value Referen Units Interpr Notes Date tion ce etation Range Sodium 139 136 - mmol/L No No Mar 08 145 informa informa 2016 tion in tion in 6:19 AM source source data data Potassi 5.0 3.5 - mmol/L No No Mar 08 um 5.0 informa informa 2016 [Moles/ tion in tion in 6:19 AM volume] source source in data data Serum or Plasma Chlorid 102 98 - mmol/L No No Mar 08 e 107 informa informa 2016 tion in tion in 6:19 AM source source data data Carbon 25 22 - 29 mmol/L No No Mar 08 dioxide informa informa 2016 , total tion in tion in 6:19 AM source source [Moles/ data data volume] in Serum or Plasma Anion 12 7 - 16 mmol/L No No Mar 08 Gap informa informa 2016 tion in tion in 6:19 AM source source data data CALCIUM 9.9 8.8 - mg/dL No No Mar 08 .TOTAL 10.2 informa informa 2016 tion in tion in 6:19 AM source source data data Glucose 93 82 - mg/dL No No Mar 08 Lvl 100 informa informa 2016 tion in tion in 6:19 AM source source data data BUN 30 8 - 23 mg/dL High No Mar 08 informa 2016 tion in 6:19 AM source data Creatin 1.09 0.51 - mg/dL No No Mar 08 ine 1.30 informa informa 2016 tion in tion in 6:19 AM source source data data GFR Non 50 No No No No Mar 6 Afr Am informa informa informa informa 2016 tion in tion in tion in tion in 6:19 AM source source source source data data data data CBC Observa Value Referen Units Interpr Notes Date tion ce etation Range LEUKOCY 5.5 4.0 - x10(3)/ No No Fausto 6 MIKAEL 11.0 mcL informa informa 2016 tion in tion in 6:00 AM source source data data Erythro 4.11 3.80 - x10(6)/ No No Mar 6 cytes 5.10 mcL informa informa 2016 [#/volu tion in tion in 6:00 AM me] in source source Blood data data by Automat ed count Hemoglo 11.5 12.0 - gm/dL Low No Mar 08 bin 15.6 informa 2016 [Mass/v tion in 6:00 AM olume] source in data Blood Hematoc 35.3 35.7 - % Low No Mar 08 rit 45.9 informa 2016 [Volume tion in 6:00 AM source Fractio data n] of Blood by Automat ed count Erythro 85.9 82.5 - fL No No Mar 08 cyte 99.8 informa informa 2016 mean tion in tion in 6:00 AM corpusc source source ular data data volume [Entiti c volume] by Automat ed count Erythro 28.0 27.0 - pg No No Mar 6 cyte 34.3 informa informa 2016 mean tion in tion in 6:00 AM corpusc source source ular data data hemoglo bin [Entiti c mass] by Automat ed count Erythro 32.6 32.1 - gm/dL No No Mar 08 cyte 35.3 informa informa 2016 mean tion in tion in 6:00 AM corpusc source source ular data data hemoglo bin concent ration [Mass/v olume] by Automat ed count Erythro 15.5 11.5 - % High No Mar 6 cyte 15.0 informa 2016 distrib tion in 6:00 AM ution source width data [Ratio] by Automat ed count Platele 172 144 - x10(3)/ No No Fausto 6 ts 423 mcL informa informa 2016 [#/volu tion in tion in 6:00 AM me] in source source Blood data data by Automat ed count MPV 9.6 6.8 - fL No No Fausto 6 10.8 informa informa 2016 tion in tion in 6:00 AM source source data data Auto Diff Observa Value Referen Units Interpr Notes Date tion ce etation Range Neutrop 63.6 No % No No Mar 6 hils informa informa informa 2016 [#/volu tion in tion in tion in 6:00 AM me] in source source source Blood data data data by Automat ed count Lymphoc 24.4 No % No No Mar 6 ytes informa informa informa 2016 [#/volu tion in tion in tion in 6:00 AM me] in source source source Blood data data data by Automat ed count Monocyt 7.2 No % No No Mar 6 es informa informa informa 2016 [#/volu tion in tion in tion in 6:00 AM me] in source source source Blood data data data by Automat ed count Eos 4.2 No % No No Fausto 6 Percent informa informa informa 2016 tion in tion in tion in 6:00 AM source source source data data data Baso 0.6 No % No No Fausto 6 Percent informa informa informa 2016 tion in tion in tion in 6:00 AM source source source data data data Neut# 3.5 1.8 - x10(3)/ No No Fausto 6 7.7 mcL informa informa 2016 tion in tion in 6:00 AM source source data data Lymph# 1.3 0.6 - x10(3)/ No No Fausto 6 4.8 mcL informa informa 2016 tion in tion in 6:00 AM source source data data Trumbull# 0.4 0.0 - x10(3)/ No No Fausto 6 1.3 mcL informa informa 2016 tion in tion in 6:00 AM source source data data Eos# 0.2 0.0 - x10(3)/ No No Fausto 6 0.5 mcL informa informa 2016 tion in tion in 6:00 AM source source data data Baso# 0.0 0.0 - x10(3)/ No No Fausto 6 0.2 mcL informa informa 2016 tion in tion in 6:00 AM source source data data Ur Prot/Crea Ratio Observa Value Referen Units Interpr Notes Date tion ce etation Range Urine 5.0 No mg/dL No No Fausto 5 Protein informa informa informa 2016 tion in tion in tion in 6:10 PM source source source data data data Urine 34.8 No mg/dL No No Fausto 5 Creatin informa informa informa 2016 ine tion in tion in tion in 6:12 PM source source source data data data Ur 0.14 <=0.14 mg/mg No No Fausto 5 Protein informa informa 2016 /Creat tion in tion in 6:12 PM source source data data Urine Na Observa Value Referen Units Interpr Notes Date tion ce etation Range Urine 162 No mmol/L No No Fausto 5 Sodium informa informa informa 2016 tion in tion in tion in 5:58 PM source source source data data data UA Observa Value Referen Units Interpr Notes Date tion ce etation Range UA Yellow No No No No Fausto 5 Color informa informa informa informa 2016 tion in tion in tion in tion in 5:51 PM source source source source data data data data UA Hazy Clear No Abnorma No Fausto 5 Appear informa l informa 2016 tion in tion in 5:51 PM source source data data UA Negativ Negativ No No No Fausto 5 Glucose e e informa informa informa 2016 tion in tion in tion in 5:51 PM source source source data data data UA Negativ Negativ No No No Fausto 5 Ketones e e informa informa informa 2016 tion in tion in tion in 5:51 PM source source source data data data UA Negativ Negativ No No No Fausto 5 Blood e e informa informa informa 2016 tion in tion in tion in 5:51 PM source source source data data data UA pH 7.0 4.8 - No No Referen Fausto 5 8.0 informa informa ce 2016 tion in tion in range 5:51 PM source source valid data data for random specime ns only. UA Negativ Negativ No No No Fausto 5 Protein e e informa informa informa 2016 tion in tion in tion in 5:51 PM source source source data data data UA Normal <=1 No No No Mar 07 Urobili mg/dl informa informa informa 2016 nogen tion in tion in tion in 5:51 PM source source source data data data UA Negativ Negativ No No No Mar 07 Nitrite e e informa informa informa 2016 tion in tion in tion in 5:51 PM source source source data data data UA Leuk Trace Negativ No Abnorma No Mar 07 Est e informa l informa 2016 tion in tion in 5:51 PM source source data data UA Spec 1.012 1.001 - No No Referen Mar 07 Grav 1.035 informa informa ce 2016 tion in tion in range 5:51 PM source source valid data data for random specime ns only. UA WBC 4 0 - 4 /HPF No No Mar 07 informa informa 2016 tion in tion in 5:51 PM source source data data UA RBC 1 0 - 3 /HPF No No Mar 07 informa informa 2016 tion in tion in 5:51 PM source source data data UA 1+ No No No No Mar 07 Squam informa informa informa informa 2016 Epi tion in tion in tion in tion in 5:51 PM source source source source data data data data US RENAL AND BLADDER Observa Value Referen Units Interpr Notes Date tion ce etation Range Hx of Nephrectomy. No records. US No No No No Mar 07 RENAL informa informa informa informa 2015 AND tion in tion in tion in tion in 3:29 PM BLADDER source source source source data data data data 6 3:29 PM\.br\ \.br\HI STORY: -NAOMY\.b r\\.br\ The right kidney measure s 9.9 cm. Renal cortica l thickne ss and\.br \echoge nicity are\.br \normal . No hydrone phrosis calcifi cation or renal mass identif ied. The left\.b r\kidne y is surgica lly absent. The bladder is unremar kable and moderat minoo\.br \disten ded with urine.\ .br\\.b r\IMPRE SSION: Normal study. Previou s left nephrec ivan.\. br\ BMP Observa Value Referen Units Interpr Notes Date tion ce etation Range Sodium 139 136 - mmol/L No No Mar 07 145 informa informa 2016 tion in tion in 7:13 AM source source data data Potassi 4.9 3.5 - mmol/L No No Mar 07 um 5.0 informa informa 2016 [Moles/ tion in tion in 7:13 AM volume] source source in data data Serum or Plasma Chlorid 101 98 - mmol/L No No Mar 07 e 107 informa informa 2016 tion in tion in 7:13 AM source source data data Carbon 26 22 - 29 mmol/L No No Mar 07 dioxide informa informa 2016 , total tion in tion in 7:13 AM source source [Moles/ data data volume] in Serum or Plasma Anion 12 7 - 16 mmol/L No No Mar 07 Gap informa informa 2016 tion in tion in 7:13 AM source source data data CALCIUM 9.5 8.8 - mg/dL No No Mar 07 .TOTAL 10.2 informa informa 2016 tion in tion in 7:13 AM source source data data Glucose 86 82 - mg/dL No No Mar 07 Lvl 100 informa informa 2016 tion in tion in 7:13 AM source source data data BUN 24 8 - 23 mg/dL High No Fausto 5 informa 2016 tion in 7:13 AM source data Creatin 1.24 0.51 - mg/dL No No Mar 07 ine 1.30 informa informa 2016 tion in tion in 7:13 AM source source data data GFR Afr 52 No No No No Mar 07 Am informa informa informa informa 2016 tion in tion in tion in tion in 7:13 AM source source source source data data data data GFR Non 43 No No No No Mar 07 Afr Am informa informa informa informa 2016 tion in tion in tion in tion in 7:13 AM source source source source data data data data Auto Diff Observa Value Referen Units Interpr Notes Date tion ce etation Range Neutrop 55.5 No % No No Mar 07 hils informa informa informa 2016 [#/volu tion in tion in tion in 7:04 AM me] in source source source Blood data data data by Automat ed count Lymphoc 30.4 No % No No Fausto 5 ytes informa informa informa 2016 [#/volu tion in tion in tion in 7:04 AM me] in source source source Blood data data data by Automat ed count Monocyt 7.8 No % No No Fausto 5 es informa informa informa 2016 [#/volu tion in tion in tion in 7:04 AM me] in source source source Blood data data data by Automat ed count Eos 5.6 No % No No Fausto 5 Percent informa informa informa 2016 tion in tion in tion in 7:04 AM source source source data data data Baso 0.7 No % No No Fausto 5 Percent informa informa informa 2016 tion in tion in tion in 7:04 AM source source source data data data Neut# 2.6 1.8 - x10(3)/ No No Fausto 5 7.7 mcL informa informa 2016 tion in tion in 7:04 AM source source data data Lymph# 1.4 0.6 - x10(3)/ No No Fausto 5 4.8 mcL informa informa 2016 tion in tion in 7:04 AM source source data data Trumbull# 0.4 0.0 - x10(3)/ No No Fausto 5 1.3 mcL informa informa 2016 tion in tion in 7:04 AM source source data data Eos# 0.3 0.0 - x10(3)/ No No Fausto 5 0.5 mcL informa informa 2016 tion in tion in 7:04 AM source source data data Baso# 0.0 0.0 - x10(3)/ No No Fausot 5 0.2 mcL informa informa 2016 tion in tion in 7:04 AM source source data data CBC Observa Value Referen Units Interpr Notes Date tion ce etation Range LEUKOCY 4.7 4.0 - x10(3)/ No No Fausto 5 MIKAEL 11.0 mcL informa informa 2016 tion in tion in 7:04 AM source source data data Erythro 4.02 3.80 - x10(6)/ No No Fausto 5 cytes 5.10 mcL informa informa 2016 [#/volu tion in tion in 7:04 AM me] in source source Blood data data by Automat ed count Hemoglo 11.3 12.0 - gm/dL Low No Mar 07 bin 15.6 informa 2016 [Mass/v tion in 7:04 AM olume] source in data Blood Hematoc 34.5 35.7 - % Low No Mar 07 rit 45.9 informa 2016 [Volume tion in 7:04 AM source Fractio data n] of Blood by Automat ed count Erythro 85.8 82.5 - fL No No Mar 07 cyte 99.8 informa informa 2016 mean tion in tion in 7:04 AM corpusc source source ular data data volume [Entiti c volume] by Automat ed count Erythro 28.2 27.0 - pg No No Mar 07 cyte 34.3 informa informa 2016 mean tion in tion in 7:04 AM corpusc source source ular data data hemoglo bin [Entiti c mass] by Automat ed count Erythro 32.9 32.1 - gm/dL No No Mar 07 cyte 35.3 informa informa 2016 mean tion in tion in 7:04 AM corpusc source source ular data data hemoglo bin concent ration [Mass/v olume] by Automat ed count Erythro 15.0 11.5 - % No No Mar 07 cyte 15.0 informa informa 2016 distrib tion in tion in 7:04 AM ution source source width data data [Ratio] by Automat ed count Platele 154 144 - x10(3)/ No No Mar 07 ts 423 mcL informa informa 2016 [#/volu tion in tion in 7:04 AM me] in source source Blood data data by Automat ed count MPV 9.5 6.8 - fL No No Mar 07 10.8 informa informa 2016 tion in tion in 7:04 AM source source data data BMP Observa Value Referen Units Interpr Notes Date tion ce etation Range Sodium 142 136 - mmol/L No No Mar 06 145 informa informa 2016 tion in tion in 6:37 AM source source data data Potassi 4.6 3.5 - mmol/L No No Mar 06 um 5.0 informa informa 2016 [Moles/ tion in tion in 6:37 AM volume] source source in data data Serum or Plasma Chlorid 104 98 - mmol/L No No Mar 4 e 107 informa informa 2016 tion in tion in 6:37 AM source source data data Carbon 26 22 - 29 mmol/L No No Fausto 4 dioxide informa informa 2016 , total tion in tion in 6:37 AM source source [Moles/ data data volume] in Serum or Plasma Anion 12 7 - 16 mmol/L No No Fausto 4 Gap informa informa 2016 tion in tion in 6:37 AM source source data data CALCIUM 9.1 8.8 - mg/dL No No Mar 4 .TOTAL 10.2 informa informa 2016 tion in tion in 6:37 AM source source data data Glucose 96 82 - mg/dL No No Mar 06 Lvl 100 informa informa 2016 tion in tion in 6:37 AM source source data data BUN 24 8 - 23 mg/dL High No Fausto 4 informa 2016 tion in 6:37 AM source data Creatin 1.04 0.51 - mg/dL No No Mar 4 ine 1.30 informa informa 2016 tion in tion in 6:37 AM source source data data GFR Non 53 No No No No Mar 4 Afr Am informa informa informa informa 2016 tion in tion in tion in tion in 6:37 AM source source source source data data data data Auto Diff Observa Value Referen Units Interpr Notes Date tion ce etation Range Neutrop 74.3 No % No No Mar 4 hils informa informa informa 2016 [#/volu tion in tion in tion in 6:04 AM me] in source source source Blood data data data by Automat ed count Lymphoc 13.5 No % No No Fausto 4 ytes informa informa informa 2016 [#/volu tion in tion in tion in 6:04 AM me] in source source source Blood data data data by Automat ed count Monocyt 7.8 No % No No Fausto 4 es informa informa informa 2016 [#/volu tion in tion in tion in 6:04 AM me] in source source source Blood data data data by Automat ed count Eos 3.9 No % No No Fausto 4 Percent informa informa informa 2016 tion in tion in tion in 6:04 AM source source source data data data Baso 0.5 No % No No Fausto 4 Percent informa informa informa 2016 tion in tion in tion in 6:04 AM source source source data data data Neut# 3.9 1.8 - x10(3)/ No No Fausto 4 7.7 mcL informa informa 2016 tion in tion in 6:04 AM source source data data Lymph# 0.7 0.6 - x10(3)/ No No Fausto 4 4.8 mcL informa informa 2016 tion in tion in 6:04 AM source source data data Trumbull# 0.4 0.0 - x10(3)/ No No Fausto 4 1.3 mcL informa informa 2016 tion in tion in 6:04 AM source source data data Eos# 0.2 0.0 - x10(3)/ No No Fausto 4 0.5 mcL informa informa 2016 tion in tion in 6:04 AM source source data data Baso# 0.0 0.0 - x10(3)/ No No Fausto 4 0.2 mcL informa informa 2016 tion in tion in 6:04 AM source source data data CBC Observa Value Referen Units Interpr Notes Date tion ce etation Range LEUKOCY 5.2 4.0 - x10(3)/ No No Fausto 4 MIKAEL 11.0 mcL informa informa 2016 tion in tion in 6:04 AM source source data data Erythro 3.81 3.80 - x10(6)/ No No Fausto 4 cytes 5.10 mcL informa informa 2015 [#/volu tion in tion in 6:04 AM me] in source source Blood data data by Automat ed count Hemoglo 10.6 12.0 - gm/dL Low No Fausto 4 bin 15.6 informa 2015 [Mass/v tion in 6:04 AM olume] source in data Blood Hematoc 32.5 35.7 - % Low No Fausto 4 rit 45.9 informa 2016 [Volume tion in 6:04 AM source Fractio data n] of Blood by Automat ed count Erythro 85.4 82.5 - fL No No Fausto 4 cyte 99.8 informa informa 2016 mean tion in tion in 6:04 AM corpusc source source ular data data volume [Entiti c volume] by Automat ed count Erythro 27.7 27.0 - pg No No Mar 06 cyte 34.3 informa informa 2016 mean tion in tion in 6:04 AM corpusc source source ular data data hemoglo bin [Entiti c mass] by Automat ed count Erythro 32.5 32.1 - gm/dL No No Mar 06 cyte 35.3 informa informa 2016 mean tion in tion in 6:04 AM corpusc source source ular data data hemoglo bin concent ration [Mass/v olume] by Automat ed count Erythro 15.2 11.5 - % High No Mar 06 cyte 15.0 informa 2016 distrib tion in 6:04 AM ution source width data [Ratio] by Automat ed count Platele 152 144 - x10(3)/ No No Mar 06 ts 423 mcL informa informa 2016 [#/volu tion in tion in 6:04 AM me] in source source Blood data data by Automat ed count MPV 9.5 6.8 - fL No No Mar 06 10.8 informa informa 2016 tion in tion in 6:04 AM source source data data ASO Observa Value Referen Units Interpr Notes Date tion ce etation Range ASO 247 <=200 IU/mL High Normal Mar 05 Range: 2016 < 100 7:37 PM IU/mL < 6 years\. br\ < 200 IU/mL 6 yrs - adult LDL Observa Value Referen Units Interpr Notes Date tion ce etation Range LDL 71 <=100 mg/dL No < 100 Mar 05 Calcula informa 2016 cristian tion in 5:22 PM source Optimal data \.br\10 0 - 129 Near or above optimal \.br\13 0 - 159 Borderl ine High\.b r\160 - 189 High\.b r\ >= 190 Very High Lipid Refx Observa Value Referen Units Interpr Notes Date tion ce etation Range Cholest 152 <=200 mg/dL No < 200 Mar 05 mario informa 2016 [Percen tion in 5:22 PM tile] source Desirab data le\.br\ 200 - 239 Borderl ine High\.b r\>= 240 High TRIGLYC 136 <=150 mg/dL No < 150 Mar 05 ERIDES. informa 2015 TOTAL tion in Normal\ 5:22 PM source .br\150 data - 199 Borderl ine High\.b r\200 - 499 High\.b r\ >= 500 Very High CHOLEST 54 >=40 mg/dL No > 60 Mar 05 EROLS.I inform2015 N HDL tion in Optimal 5:22 PM source \.br\40 data - 60 Accepta ble\.br \ < 40 Low CRP Observa Value Referen Units Interpr Notes Date tion ce etation Range CRP 3.41 <=5.00 mg/L No No Mar 05 informa informa 2015 tion in tion in 5:22 PM source source data data TSH Reflex Observa Value Referen Units Interpr Notes Date tion ce etation Range Thyrotr 2.000 0.270 - mcIU/mL No No Mar 05 opin 4.200 informa informa 2015 [Units/ tion in tion in 5:22 PM volume] source source in data data Serum or Plasma Glyco Observa Value Referen Units Interpr Notes Date tion ce etation Range Hemoglo 5.9 <=7.0 % No Referen Mar 05 bin informa ce 2016 A1c/Hem tion in Interva 4:56 PM oglobin source l for .total data Hgb in A1c\.br Blood \\.br\H gb A1c Interpr etation \.br\-- ------- -- ------- ------- --\.br\ \.br\ < 6.0 Non-Breonna betic Range\. br\6.0 - 7.0 ADA Therape utic Target\ .br\ > 7.0 Action suggest ed Valproic Observa Value Referen Units Interpr Notes Date tion ce etation Range Valproa 74.7 50.0 - mcg/mL No No Mar 05 te 100.0 informa informa 2015 [Mass/v tion in tion in 1:25 PM olume] source source in data data Serum or Plasma CBC Observa Value Referen Units Interpr Notes Date tion ce etation Range LEUKOCY 5.9 4.0 - x10(3)/ No No Mar 05 MIKAEL 11.0 mcL informa informa 2015 tion in tion in 12:56 source source PM data data Erythro 4.23 3.80 - x10(6)/ No No Mar 3 cytes 5.10 mcL informa informa 2016 [#/volu tion in tion in 12:56 me] in source source PM Blood data data by Automat ed count Hemoglo 11.7 12.0 - gm/dL Low No Mar 05 bin 15.6 informa 2016 [Mass/v tion in 12:56 olume] source PM in data Blood Hematoc 36.0 35.7 - % No No Mar 05 rit 45.9 informa informa 2016 [Volume tion in tion in 12:56 source source PM Fractio data data n] of Blood by Automat ed count Erythro 85.1 82.5 - fL No No Mar 05 cyte 99.8 informa informa 2016 mean tion in tion in 12:56 corpusc source source PM ular data data volume [Entiti c volume] by Automat ed count Erythro 27.6 27.0 - pg No No Mar 05 cyte 34.3 informa informa 2015 mean tion in tion in 12:56 corpusc source source PM ular data data hemoglo bin [Entiti c mass] by Automat ed count Erythro 32.4 32.1 - gm/dL No No Mar 05 cyte 35.3 informa informa 2015 mean tion in tion in 12:56 corpusc source source PM ular data data hemoglo bin concent ration [Mass/v olume] by Automat ed count Erythro 15.3 11.5 - % High No Mar 05 cyte 15.0 inform2015 distrib tion in 12:56 ution source PM width data [Ratio] by Automat ed count Platele 174 144 - x10(3)/ No No Mar 3 ts 423 mcL informa informa 2016 [#/volu tion in tion in 12:56 me] in source source PM Blood data data by Automat ed count MPV 9.1 6.8 - fL No No Mar 3 10.8 informa informa 2016 tion in tion in 12:56 source source PM data data Auto Diff Observa Value Referen Units Interpr Notes Date tion ce etation Range Neutrop 63.9 No % No No Mar 3 hils informa informa informa 2016 [#/volu tion in tion in tion in 12:56 me] in source source source PM Blood data data data by Automat ed count Lymphoc 23.7 No % No No Fausto 3 ytes informa informa informa 2016 [#/volu tion in tion in tion in 12:56 me] in source source source PM Blood data data data by Automat ed count Monocyt 8.7 No % No No Fausto 3 es informa informa informa 2016 [#/volu tion in tion in tion in 12:56 me] in source source source PM Blood data data data by Automat ed count Eos 3.3 No % No No Fausto 3 Percent informa informa informa 2016 tion in tion in tion in 12:56 source source source PM data data data Baso 0.4 No % No No Fausto 3 Percent informa informa informa 2016 tion in tion in tion in 12:56 source source source PM data data data Neut# 3.8 1.8 - x10(3)/ No No Fausto 3 7.7 mcL informa informa 2016 tion in tion in 12:56 source source PM data data Lymph# 1.4 0.6 - x10(3)/ No No Fausto 3 4.8 mcL informa informa 2016 tion in tion in 12:56 source source PM data data Trumbull# 0.5 0.0 - x10(3)/ No No Fausto 3 1.3 mcL informa informa 2016 tion in tion in 12:56 source source PM data data Eos# 0.2 0.0 - x10(3)/ No No Fausto 3 0.5 mcL informa informa 2016 tion in tion in 12:56 source source PM data data Baso# 0.0 0.0 - x10(3)/ No No Fausto 3 0.2 mcL informa informa 2016 tion in tion in 12:56 source source PM data data
--- OUTSIDE RECORDS SUMMARY | 2017-07-16 02:47 | External Medical Summary Rpt ---
[...] - 7.8 K/mm3 Normal No May 05 mikeal informati 2016 4:15 [#/volume on in PM [...] in 6:00 AM source source data data Crockett# 0.4 0.0 - x10(3)/ No No Fausto [...] in 7:04 AM source source data data Crockett# 0.4 0.0 - x10(3)/ No No Fausto 5 1.3 mcL informa informa 2016 tion in tion in 7:04 AM source source data data Eos# 0.3 0.0 - x10(3)/ No No Fausto 5 0.5 mcL informa informa 2016 tion in tion in 7:04 AM source source data data Baso# 0.0 0.0 - x10(3)/ No No Fausto 5 0.2 mcL informa informa 2016 tion [...] in 6:04 AM source source data data Crockett# 0.4 0.0 - x10(3)/ No No Fausto [...] in 12:56 source source PM data data Crockett# 0.5 0.0 - x10(3)/ No No Fausto [...]
== END 2017-07-11 16:46 | disposition home or self-care (01) ==
LOC: ER 15:18
DX: M25.511 Pain in right shoulder (principal); M25.551 Pain in right hip; W06.XXXA Fall from bed, initial encounter; Z91.81 History of falling; Y92.193 Bedroom in other specified residential institution as the place of occurrence of the external cause; Z88.6 Allergy status to analgesic agent; Z88.7 Allergy status to serum and vaccine; I10 Essential (primary) hypertension; E78.5 Hyperlipidemia, unspecified; K21.9 Gastro-esophageal reflux disease without esophagitis; F41.8 Other specified anxiety disorders

== ENCOUNTER → 2017-08-09 | Outpatient (CLI) | payer MEDICARE, MEDICAID ==
--- NOTE | 2017-08-09 11:56 | RADIOLOGY REPORT PS360 ---
CT ABD PELVIS W/ CONTRAST CLINICAL INDICATION: Abdominal hernia, pain ORDERING PHYSICIAN: Gomez Lemus MD PATIENT AGE: 72 years COMPARISON: None TECHNIQUE: Axial images obtained with sagittal and coronal reformats. PROCEDURE: Oral Contrast: Redicat IV Contrast: 75 mL's of Isovue-370 . FINDINGS: Lung bases are clear. There is a tubular hyperdensity along the left anterior chest/breast region. This could be related to an opacified pain or a catheter. Please correlate clinically. Is a rounded isodensity in the hepatic dome 17 mm consistent with a hepatic cyst. A nonspecific 6 mm isodense involves left hepatic lobe laterally too small to categorize. Liver is otherwise unremarkable. There has been prior cholecystectomy without biliary dilatation. The spleen, pancreas, and adrenal glands are unremarkable. There has been prior left nephrectomy. No evidence of mass in the left renal bed. Right kidney has an unremarkable appearance. No pelvic mass. No evidence of diverticulitis or appendicitis. No intestinal obstruction or free air. There is a ventral abdominal wall hernia which contains a loop of transverse colon. No evidence of intestinal obstruction. No abdominal wall defect measures 3 cm in width and is 6 cm superior to the umbilicus. No evidence of aneurysm. There is mild lumbar scoliosis convex right with lumbar spondylosis. IMPRESSION: 1. Ventral abdominal wall hernia containing a loop of large bowel without evidence of obstruction. 2. Other nonacute findings as described above. 3. Prior left nephrectomy
== END ==
LOC: RAD 09:16
DX: K46.9 Unspecified abdominal hernia without obstruction or gangrene (principal)